=== PATIENT | female | born 1955 | race Caucasian/White ===

== ENCOUNTER 2019-03-19 08:00 | Outpatient (CLI) | payer BC ==
[2019-03-19 09:11] LABS: BASOPHILS 0.6 % (0-2); EOSINOPHILS 3.5 % (0-7); HEMATOCRIT 41.6 % (36.0-48.0); HEMOGLOBIN 13.5 g/dL (12-16); IMMATURE GRANULOCYTES 0.2 % (0-5); LYMPHOCYTES 38.9 % (15-50); MCH 30.9 pg (26.0-34.0); MCHC 32.5 g/dL (31.0-37.0); MCV 95.2 fL (80.0-100.0); MEAN PLATELET VOLUME 9.7 fL (7.4-10.4); MONOCYTES 8.4 % (2-11); NEUTROPHILS 48.4 % (40-80); PLATELET COUNT 289 10x3/uL (130-400); RBC 4.37 10x6/uL (4.00-5.40); RDW 13.4 % (11.5-14.5); WBC 5.1 10x3/uL (4.8-10.8)
[2019-03-19 09:54] LABS: ALBUMIN 3.5 g/dL (3.4-5.0); ALKALINE PHOSPHATASE 83 U/L (46-116); ALT (SGPT) 30 U/L (10-68); BILIRUBIN - TOTAL 0.36 mg/dL (0.2-1.3); CALC OSMOLALITY 285 mosm/kg (275-300); CARBON DIOXIDE 34.3 mmol/L (21.0-32.0); CHLORIDE - SERUM 105 mmol/L (98-107); CHOLESTEROL, TOTAL 233 mg/dL (0-200); CREATININE - SERUM 0.8 mg/dL (0.6-1.3); GLUCOSE 101 mg/dL (74-106); HDL CHOLESTEROL 77 mg/dL (32-96); LDL CHOLESTEROL 144 mg/dL (0-100); LDL-HDL RATIO 1.9 ratio (1.5-3.5); POTASSIUM - SERUM 4.4 mmol/L (3.5-5.1); SODIUM 142 mmol/L (136-145); THYROID STIMULATING HORMONE 2.71 uIU/mL (0.36-3.74); TRIGLYCERIDE 64 mg/dL (30-200); UREA NITROGEN 20 mg/dL (7-18); eGFR NON AFRICAN AMERICAN 76 mL/min (90-120)
== END 2019-03-19 08:01 | disposition home or self-care (01) ==
LOC: D.LAB 08:00
PROVIDERS: ATTEND Family Medicine
DX: E11.9 Type 2 diabetes mellitus without complications (principal); I10 Essential (primary) hypertension; E78.5 Hyperlipidemia, unspecified; M19.90 Unspecified osteoarthritis, unspecified site